=== PATIENT | female | born 1975 | race American Indian/Alaskan Native ===

== ENCOUNTER 2017-02-01 12:07 | Outpatient (CLI) | payer OTHER ==
--- NOTE | 2017-02-01 15:08 | Mammography Report ---
BILATERAL DIGITAL DIAGNOSTIC MAMMOGRAM with CAD: 02/01/17 12:07:00 CLINICAL: Bilateral breast pain and a right lump. Status post bilateral reduction mammoplasty. COMPARISON:None available. However, she stated that she had had previous mammogram at [facility]. FINDINGS: The breasts are almost entirely fatty.No mass or architectural distortion. Bilateral scar with probably benign calcifications. A group of calcifications is associated with scar in the upper outer quadrant of each breast and a few probably benign calcifications are identified near the palpable marker at 7 o'clock near nipple in the right breast. Mostly fat underlies the marker. IMPRESSION: A right palpable lump with negative mammographic findings. Recommend targeted ultrasound of the right breast. We will attempt to obtain a prior mammogram and compare in evaluation of the calcifications. In the event that comparison views are not available, recommend a six-month bilateral mammogram for followup of the calcifications. BI-RADS CATEGORY: 0--Needs Additional Imaging ACR BI-RADS MAMMOGRAPHIC CODES: 0 = Needs additional imaging evaluation; 1 = Negative; 2 = Benign; 3 = Probably benign; 4 = Suspicious; 5 = Malignant; 6 = Known biopsy-proven malignancy COMMENT: 1. Dense breast tissue, i.e., adenosis, fibrocystic changes, etc., may obscure an underlying neoplasm. 2. Approximately 10% of cancers are not detected with mammography. 3. A negative mammography report should not delay biopsy if a clinically suspicious mass is present. COMMENT: Patient follow-up letters are generated by our [employer] application.
== END 2017-02-01 12:08 | disposition home or self-care (01) ==
LOC: SPVWC 12:07
PROVIDERS: ATTEND Surgery
DX: N64.4 Mastodynia (principal); N63.10 Unspecified lump in the right breast, unspecified quadrant; R92.1 Mammographic calcification found on diagnostic imaging of breast; E78.00 Pure hypercholesterolemia, unspecified; F32.9 Major depressive disorder, single episode, unspecified; F41.9 Anxiety disorder, unspecified; D64.9 Anemia, unspecified; Z98.890 Other specified postprocedural states
CPT/HCPCS: 77066; G0204

== ENCOUNTER 2017-03-23 15:21 | Outpatient (CLI) | payer OTHER | END 2017-03-23 15:22 | disposition home or self-care (01) | LOC: LABHHL 15:21 | PROVIDERS: ATTEND Specialist | DX: N64.1 Fat necrosis of breast (principal) | CPT/HCPCS: 88305 ==

== ENCOUNTER 2017-05-10 19:21 | Emergency (ER) | payer MEDICAID ==
[2017-05-10 20:01] VITALS: BP 120/68
[2017-05-10] MEDS ORDERED: TORADOL IM ONE (20:57)
--- NOTE | 2017-05-10 21:02 | Emergency Department Report ---
HPI - General Chief Complaint: Extremity Injury, Lower Time Seen by Provider: 05/10/17 20:53 - HPI HPI: Patient is a 41-year-old female with no prior medical history who presents to ED complaining of left foot pain 1 day. Patient states she was at work earlier today when she twisted her left foot why she was coming down a step. Patient states she did not fall but barely lost her footing. She denies loss of consciousness, any bleeding laceration to the foot. Patient states pain got worse and as the day progresses. So she wanted to have it examined. She denies any loss of sensation or deformities to the foot ED Past Medical Hx - Past Medical History Hx Psychiatric Treatment: Yes (depression/anger) Hx Asthma: No Hx COPD: No Hx HIV: No Additional medical history: bipolar. anxiety - Surgical History Hx Breast Surgery: Yes (REDUCTION) Additional Surgical History: tubal ligation/c section x2 - Social History Smoking Status: Light Tobacco Smoker - Medications Home Medications: Home Medications Medication Instructions Recorded Confirmed Last Taken Type Cyclobenzaprine [Flexeril] 10 mg PO QHS PRN #24 tablet 05/10/17 Unknown Rx Naproxen [Naprosyn] 500 mg PO BID #30 tablet 05/10/17 Unknown Rx ED Review of Systems ROS: Stated complaint: LT ANKLE PAIN Other details as noted in HPI Constitutional: denies: chills, fever Eyes: denies: eye pain, eye discharge, vision change ENT: denies: ear pain, throat pain Respiratory: denies: cough, shortness of breath, wheezing Cardiovascular: denies: chest pain, palpitations Endocrine: no symptoms reported Gastrointestinal: denies: abdominal pain, nausea, diarrhea Genitourinary: denies: urgency, dysuria, discharge Musculoskeletal: denies: back pain, joint swelling, arthralgia Skin: denies: rash, lesions Neurological: denies: headache, weakness, paresthesias Psychiatric: denies: anxiety, depression Hematological/Lymphatic: denies: easy bleeding, easy bruising Physical Exam - Physical Exam Vital Signs: Vital Signs 05/10/17 19:59 Temperature 99.1 F Pulse Rate 80 Respiratory 18 Rate Blood Pressure 120/68 O2 Sat by Pulse 97 Oximetry Physical Exam: GENERAL: Alert and oriented x3, no apparent distress, Normal Gait, atraumatic. HEAD: Head is normocephalic and a-traumatic. NECK: Supple. Non edematous, No carotid bruits. No lymphadenopathy or thyromegaly. No C-spine tenderness LUNGS: Symetrical with respiration, No wheezing, no rales or crackles, CTAB. HEART: S1, S2 present, regular rate and rhythm without murmur, no rubs, no gallops. Non tender to palpation EXTREMITIES/MUSCULOSKELETAL: Left ankle and foot shows no cyanosis, no clubbing , no rash, lesions or edema. Full ROM bilaterally. UE/LE Pulses 2+ bilaterally. LE and UE 5+ strength bilaterally, patient able to flex and extend foot with no problems. Mild tenderness to palpation of the anterior aspect of the foot, warm to touch no deformity seen. Patient able to apply pressure without difficulty. NEUROLOGIC: The patient is cooperative with no focal neurologic deficits. Normal speech. Normal sensation in bilateral upper and lower extremities, No loss of sensation, SKIN: Warm and dry, No lesions, No ulceration or induration present. ED Course Vital Signs 05/10/17 19:59 Temperature 99.1 F Pulse Rate 80 Respiratory 18 Rate Blood Pressure 120/68 O2 Sat by Pulse 97 Oximetry ED Medical Decision Making - Radiology Data Radiology results: report reviewed, image reviewed FINAL REPORT PROCEDURE: XR FOOT 3+V LT TECHNIQUE: LEFT foot radiographs, AP, lateral, and oblique views. CPT 72760 HISTORY: LEFT foot pain COMPARISON: No prior studies are available for comparison. FINDINGS: Fracture (s) and/or Dislocation(s): None . Alignment: Normal . Joint space(s): Normal . Soft tissues: Normal . Bone mineralization: Normal . Foreign bodies: None . Calcaneal spurring: None . IMPRESSION: Normal Examination . Transcribed By: [facility] [place]ictated By: TARSHA LUKE Electronically Authenticated By: TARSHA LUKE Signed Date/Time: 05/10/17 3837 - Medical Decision Making 37-year-old female presents to ED with left foot strain ED course: Patient received Toradol in ED. Foot x-rays obtained. Shows no acute fractures. See reporte above Vital signs are normal patient is in no acute distress Discussed with patient follow-up with primary care physician. Discussed the patient and take medications as prescribed. Patient has no neurological deficit. Patient is alert and oriented 3 and understands all instructions given. Discussed drowsiness effect of Flexeril makes her drowsy and not to operate machinery while taking flexeril Critical care attestation.: If time is entered above; I have spent that time in minutes in the direct care of this critically ill patient, excluding procedure time. ED Disposition Clinical Impression: Strain of foot, left Qualifiers: Encounter type: initial encounter Qualified Code(s): S96.912A - Strain of unspecified muscle and tendon at ankle and foot level, left foot, initial encounter Disposition: TO HOME OR SELFCARE Is pt being admited?: No Does the pt Need Aspirin: No Condition: Stable Instructions: Foot Sprain (ED), Arthralgia (ED), Ankle Exercises (GEN), RICE Therapy (ED) Additional Instructions: Make sure to follow up with the primary care physician as discussed. Take all your medications as you've been prescribed. If you have any worsening symptoms or develop new symptoms please return to ED immediately. Prescriptions: Cyclobenzaprine [Flexeril] 10 mg PO QHS PRN #24 tablet PRN Reason: Muscle Spasm Naproxen [Naprosyn] 500 mg PO BID #30 tablet Referrals: ELLY SURESH MD [Primary Care Provider] - 3-5 Days [facility] [Outside] - 3-5 Days [facility] [Outside] - 3-5 Days [facility] [Outside] - 3-5 Days Forms: Work/School Release Form(ED) Time of Disposition: 21:07
--- NOTE | 2017-05-10 22:14 | XRay Report ---
FINAL REPORT PROCEDURE: XR FOOT 3+V LT TECHNIQUE: LEFT foot radiographs, AP, lateral, and oblique views. CPT 93080 HISTORY: LEFT foot pain COMPARISON: No prior studies are available for comparison. FINDINGS: Fracture (s) and/or Dislocation(s): None . Alignment: Normal . Joint space(s): Normal . Soft tissues: Normal . Bone mineralization: Normal . Foreign bodies: None . Calcaneal spurring: None . IMPRESSION: Normal Examination .
== END 2017-05-10 22:27 | disposition home or self-care (01) ==
LOC: ED 19:21
DX: S96.912A Strain of unspecified muscle and tendon at ankle and foot level, left foot, initial encounter (principal); F31.9 Bipolar disorder, unspecified; F41.9 Anxiety disorder, unspecified; F17.200 Nicotine dependence, unspecified, uncomplicated; Z98.51 Tubal ligation status; Z88.8 Allergy status to other drugs, medicaments and biological substances; X50.1XXA Overexertion from prolonged static or awkward postures, initial encounter; Y93.01 Activity, walking, marching and hiking; Y99.0 Civilian activity done for income or pay; Y92.69 Other specified industrial and construction area as the place of occurrence of the external cause
CPT/HCPCS: 73630; 96372; 99283; J1885

== ENCOUNTER 2017-10-31 08:08 | Emergency (ER) | payer MEDICAID ==
[2017-10-31 08:55] VITALS: BP 131/73
[2017-10-31] MEDS ORDERED: FUL-GLO OP ONE (11:10)
[2017-10-31] MEDS ORDERED: FIORICET PO ONE (11:10)
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
== END 2017-10-31 11:50 | disposition home or self-care (01) ==
LOC: ED 08:08
DX: H20.9 Unspecified iridocyclitis (principal); S05.02XA Injury of conjunctiva and corneal abrasion without foreign body, left eye, initial encounter; S05.01XA Injury of conjunctiva and corneal abrasion without foreign body, right eye, initial encounter; Z88.8 Allergy status to other drugs, medicaments and biological substances; Y09 Assault by unspecified means; Y93.89 Activity, other specified; Y92.89 Other specified places as the place of occurrence of the external cause; Y99.8 Other external cause status
CPT/HCPCS: 99283

== ENCOUNTER 2018-06-20 09:58 | Emergency (ER) | payer OTHER ==
[2018-06-20 10:13] VITALS: BP 126/85
[2018-06-20] MEDS ORDERED: TORADOL IM ONE (12:33)
--- NOTE | 2018-06-20 13:09 | Emergency Department Report ---
ED Back Pain/Injury HPI - General Chief Complaint: Back Pain/Injury Stated Complaint: BACK/CHEST/FEET PAIN Time Seen by Provider: 06/20/18 12:28 Source: patient Limitations: No Limitations - History of Present Illness Initial Comments: Patient is a 42-year-old female who is presenting with generalized back pain. Patient states for the last 2 days she's had pain in the lower back as well as the left mid back. Patient states she has a history of chronic pain but the pain is worse over the last 2 days. Patient denies any bowel or bladder dysfunction dysuria or abdominal pain. Patient denies any direct trauma to the back or falls. - Related Data Previous Rx's Medication Instructions Recorded Last Taken Type Cyclobenzaprine [Flexeril] 10 mg PO QHS PRN #24 tablet 05/10/17 Unknown Rx Naproxen [Naprosyn] 500 mg PO BID #30 tablet 05/10/17 Unknown Rx Acetaminophen/Codeine [Tylenol 1 tab PO Q6H PRN #20 tab 10/31/17 Unknown Rx /Codeine # 3 tab] Erythromycin [Erythromycin Ophth 10 applic OP QID #1 tube 10/31/17 Unknown Rx Oint] Prednisolone Acetate/Pf 5 ml OP TID #1 drops.susp 10/31/17 Unknown Rx [Prednisolone Acet 1% Eye Drop] Ciprofloxacin HCl [Ciprofloxacin 100 mg PO BID #14 tablet 12/12/17 Unknown Rx TAB] HYDROcodone/APAP 5-325 [[place] 1 - 2 each PO Q6HR PRN #14 tablet 12/12/17 Unknown Rx 5/325] Promethazine [Phenergan TAB] 25 mg PO Q6HR PRN #20 tab 12/12/17 Unknown Rx Promethazine [Phenergan] 25 mg MO Q6HR PRN #5 supp.rect 12/12/17 Unknown Rx Ibuprofen [Ibu] 800 mg PO Q8H PRN #20 tablet 06/20/18 Unknown Rx methOCARBAMOL [Robaxin TAB] 500 mg PO Q6H PRN #14 tablet 06/20/18 Unknown Rx traMADol [Ultram] 50 mg PO Q6HR PRN #12 tablet 06/20/18 Unknown Rx Allergies Allergy/AdvReac Type Severity Reaction Status Date / Time bismuth subsalicylate Allergy Angioedema Verified 06/20/18 09:59 [From Pepto-Bismol] risperidone [From Risperdal] Allergy Swelling Verified 06/20/18 09:59 ED Review of Systems ROS: Stated complaint: BACK/CHEST/FEET PAIN Other details as noted in HPI Comment: All other systems reviewed and negative ED Past Medical Hx - Past Medical History bipolar. anxiety Family history: no significant family history ED Back Pain Physical Exam - Exam General: Vital signs noted. No distress. Alert and acting appropriately. Back/Abdomen: Yes Perithoracic Tenderness, Yes Perilumbar Tenderness, No Abdominal Tenderness, No Sacroiliac Tenderness, No Flank Tenderness, No Straight Leg Raise Pain Neuro: Yes Normal Sensation, Yes Normal DTR's, Yes Normal Gait, No Motor Weakness ED Course Vital Signs 06/20/18 10:09 Temperature 97.7 F Pulse Rate 76 Respiratory 18 Rate Blood Pressure 126/85 [Right] O2 Sat by Pulse 100 Oximetry ED Medical Decision Making - Medical Decision Making She does not meet criteria for x-ray at this time. Patient referred to orthopedics for MRI. Patient given medicines medical relief and patient will be discharged home. Critical care attestation.: If time is entered above; I have spent that time in minutes in the direct care of this critically ill patient, excluding procedure time. ED Disposition Clinical Impression: Acute exacerbation of chronic low back pain Disposition: DC-01 TO HOME OR SELFCARE Is pt being admited?: No Does the pt Need Aspirin: No Condition: Stable Instructions: Back Pain (ED) Referrals: KEMAR PEDRO MD [Staff Physician] - 3-5 Days Time of Disposition: 13:10
== END 2018-06-20 13:30 | disposition home or self-care (01) ==
LOC: ED 09:58
DX: M54.5 Low back pain (principal); G43.909 Migraine, unspecified, not intractable, without status migrainosus
CPT/HCPCS: 96372; 99282; J1885

== ENCOUNTER → 2018-07-12 | Outpatient (CLI) | payer OTHER | END | disposition home or self-care (01) | LOC: SLR 11:00 | PROVIDERS: ATTEND Otolaryngology | DX: G47.33 Obstructive sleep apnea (adult) (pediatric) (principal); R40.0 Somnolence; R06.83 Snoring | CPT/HCPCS: 95810 ==

== ENCOUNTER 2018-07-19 11:00 | Outpatient (CLI) | payer OTHER | END 2018-07-19 11:01 | disposition home or self-care (01) | LOC: SLR 11:00 | PROVIDERS: ATTEND Otolaryngology | DX: G47.33 Obstructive sleep apnea (adult) (pediatric) (principal); R40.0 Somnolence; R06.83 Snoring; E66.9 Obesity, unspecified | CPT/HCPCS: 95811 ==

== ENCOUNTER 2018-07-31 10:22 | Outpatient (CLI) | payer OTHER ==
--- NOTE | 2018-07-31 11:46 | XRay Report ---
AP AND LATERAL CERVICAL SPINE: History: Neck pain. The vertebral bodies are well mineralized and normal in alignment and vertebral height with well preserved interspace distances. The visualized portions of the posterior elements are normal. IMPRESSION: Normal study.
--- NOTE | 2018-07-31 11:46 | XRay Report ---
THORACIC SPINE, 2 VIEWS: HISTORY: back pain. Normal bone mineralization. No evidence for compression deformity, malalignment, or bone lesion. The posterior ribs are intact. The paraspinal soft tissues are within normal limits. IMPRESSION: Thoracic spine within normal limits.
--- NOTE | 2018-07-31 11:47 | XRay Report ---
LUMBOSACRAL SPINE, 3 VIEWS: History: Back pain Findings: The vertebral bodies, disk spaces and posterior elements are intact. No compression deformity or malalignment. The SI joints are symmetric and unremarkable. Mild facet arthropathy is identified at L4-5 and L5-S1. Impression: Mild facet arthropathy in the lower lumbar spine. Otherwise, unremarkable lumbar spine films.
== END 2018-07-31 10:23 | disposition home or self-care (01) ==
LOC: XRAY 10:22
PROVIDERS: ATTEND Internal Medicine
DX: Z02.71 Encounter for disability determination (principal); M46.87 Other specified inflammatory spondylopathies, lumbosacral region; M54.2 Cervicalgia; M54.6 Pain in thoracic spine
CPT/HCPCS: 72040; 72070; 72100

== ENCOUNTER 2018-10-26 10:05 | Emergency (ER) | payer OTHER ==
[2018-10-26] MEDS ORDERED: TORADOL IM ONE (11:30)
--- NOTE | 2018-10-26 12:17 | Emergency Department Report ---
ED Lower Extremity HPI - General Chief Complaint: Extremity Injury, Lower Stated Complaint: INJURED KNEE Time Seen by Provider: 10/26/18 11:15 Source: patient Mode of arrival: Ambulatory Limitations: No Limitations - History of Present Illness Initial Comments: 43-year-old female presents to the hospital complaining of right knee pain 3 days. Patient slipped in the grass hyperextend her knee when she fell. Pain has worsened instead of improving. Pain is at the anterior knee at the patella tendon as well as the posterior knee/popliteal space. Mild swelling. No erythema. Patient able to bear weight although painful. - Related Data Previous Rx's Medication Instructions Recorded Last Taken Type Cyclobenzaprine [Flexeril] 10 mg PO QHS PRN #24 tablet 05/10/17 Unknown Rx Naproxen [Naprosyn] 500 mg PO BID #30 tablet 05/10/17 Unknown Rx Acetaminophen/Codeine [Tylenol 1 tab PO Q6H PRN #20 tab 10/31/17 Unknown Rx /Codeine # 3 tab] Erythromycin [Erythromycin Ophth 10 applic OP QID #1 tube 10/31/17 Unknown Rx Oint] Prednisolone Acetate/Pf 5 ml OP TID #1 drops.susp 10/31/17 Unknown Rx [Prednisolone Acet 1% Eye Drop] Ciprofloxacin HCl [Ciprofloxacin 100 mg PO BID #14 tablet 12/12/17 Unknown Rx TAB] HYDROcodone/APAP 5-325 [[place] 1 - 2 each PO Q6HR PRN #14 tablet 12/12/17 Unknown Rx 5/325] Promethazine [Phenergan TAB] 25 mg PO Q6HR PRN #20 tab 12/12/17 Unknown Rx Promethazine [Phenergan] 25 mg [place] Q6HR PRN #5 supp.rect 12/12/17 Unknown Rx Ibuprofen [Ibu] 800 mg PO Q8H PRN #20 tablet 06/20/18 Unknown Rx methOCARBAMOL [Robaxin TAB] 500 mg PO Q6H PRN #14 tablet 06/20/18 Unknown Rx traMADol [Ultram] 50 mg PO Q6HR PRN #12 tablet 06/20/18 Unknown Rx Ibuprofen [Motrin] 800 mg PO Q8HR PRN #30 tablet 10/26/18 Unknown Rx traMADol [Ultram 50 MG tab] 50 mg PO Q4HR PRN #14 tablet 09/12/19 Unknown Rx Allergies Allergy/AdvReac Type Severity Reaction Status Date / Time bismuth subsalicylate Allergy Angioedema Verified 06/20/18 09:59 [From Pepto-Bismol] risperidone [From Risperdal] Allergy Swelling Verified 06/20/18 09:59 ED Review of Systems ROS: Stated complaint: INJURED KNEE Other details as noted in HPI Comment: All other systems reviewed and negative ED Past Medical Hx - Past Medical History Hx Hypertension: Yes Hx Diabetes: Yes Hx Psychiatric Treatment: Yes (depression/anger) Hx Asthma: No Hx COPD: No Hx HIV: No Additional medical history: bipolar. anxiety - Surgical History Hx Breast Surgery: Yes (REDUCTION) Additional Surgical History: tubal ligation/c section x2 - Social History Smoking Status: Never Smoker Substance Use Type: Alcohol - Medications Home Medications: Home Medications Medication Instructions Recorded Confirmed Last Taken Type Cyclobenzaprine [Flexeril] 10 mg PO QHS PRN #24 tablet 05/10/17 Unknown Rx Naproxen [Naprosyn] 500 mg PO BID #30 tablet 05/10/17 Unknown Rx Acetaminophen/Codeine [Tylenol 1 tab PO Q6H PRN #20 tab 10/31/17 Unknown Rx /Codeine # 3 tab] Erythromycin [Erythromycin Ophth 10 applic OP QID #1 tube 10/31/17 Unknown Rx Oint] Prednisolone Acetate/Pf 5 ml OP TID #1 drops.susp 10/31/17 Unknown Rx [Prednisolone Acet 1% Eye Drop] Ciprofloxacin HCl [Ciprofloxacin 100 mg PO BID #14 tablet 12/12/17 Unknown Rx TAB] HYDROcodone/APAP 5-325 [[place] 1 - 2 each PO Q6HR PRN #14 tablet 12/12/17 Unknown Rx 5/325] Promethazine [Phenergan TAB] 25 mg PO Q6HR PRN #20 tab 12/12/17 Unknown Rx Promethazine [Phenergan] 25 mg [place] Q6HR PRN #5 supp.rect 12/12/17 Unknown Rx Ibuprofen [Ibu] 800 mg PO Q8H PRN #20 tablet 06/20/18 Unknown Rx methOCARBAMOL [Robaxin TAB] 500 mg PO Q6H PRN #14 tablet 06/20/18 Unknown Rx traMADol [Ultram] 50 mg PO Q6HR PRN #12 tablet 06/20/18 Unknown Rx Ibuprofen [Motrin] 800 mg PO Q8HR PRN #30 tablet 10/26/18 Unknown Rx traMADol [Ultram 50 MG tab] 50 mg PO Q4HR PRN #14 tablet 10/26/18 Unknown Rx ED Physical Exam - General Limitations: No Limitations - Other Other exam information: Gen.: No acute distress Head: Atraumatic Eyes: Normal appearance EENT: Moist mucous membranes Neck: Normal appearance, no posterior midline tenderness, no meningismus Chest: Clear to auscultation bilaterally Cardiovascular: Regular rate and rhythm Abdomen: Normal appearance, soft, nontender, no rebound or guarding, normal bowel sounds Back: Normal appearance, nontender Extremity: Full range of motion, mild anterior knee swelling. Mild patellar tenderness and patella tendon. No joint instability with valgus or varus stress. Pain with movement and weightbearing. Neuro: Alert, clear speech, no focal motor or sensory deficit Psychiatric: Appropriate Skin: No rash ED Course Vital Signs 10/26/18 10:32 Temperature 98.2 F Pulse Rate 69 Respiratory 18 Rate Blood Pressure 132/81 O2 Sat by Pulse 100 Oximetry ED Lower Extremity MDM - Radiology Data Radiology results: report reviewed Right knee, 3 views INDICATION: r knee pain after hyperextension. COMPARISON: None. IMPRESSION: No acute osseous or soft tissue abnormality. No significant DJD. Focal chronic calcifications overlie the proximal MCL suggesting chronic injury. - Medical Decision Making no fxt xray reviewed lloyd wrap for support ortho f/u - Differential Diagnosis fracture, contusion, sprain Critical Care Time: No Critical care attestation.: If time is entered above; I have spent that time in minutes in the direct care of this critically ill patient, excluding procedure time. ED Disposition Clinical Impression: Right knee sprain Disposition: DC-01 TO HOME OR SELFCARE Is pt being admited?: No Does the pt Need Aspirin: No Condition: Stable Instructions: Knee Sprain (ED) Additional Instructions: Take the medication as prescribed. Follow-up with your doctor or with the doctor/clinic provided. Return if symptoms worsen as indicated by your discharge instructions. Prescriptions: Ibuprofen [Motrin] 800 mg PO Q8HR PRN #30 tablet PRN Reason: Pain, Moderate (4-6) traMADol [Ultram 50 MG tab] 50 mg PO Q4HR PRN #14 tablet PRN Reason: Pain Referrals: PRIMARY CARE, [Primary Care Provider] - 3-[address] [facility] [Provider Group] - 3-5 Days KEMAR PEDRO MD [Staff Physician] - 3-5 Days (orthopedic ) Time of Disposition: 12:44
--- NOTE | 2018-10-26 12:39 | XRay Report ---
Right knee, 3 views INDICATION: r knee pain after hyperextension. COMPARISON: None. IMPRESSION: No acute osseous or soft tissue abnormality. No significant DJD. Focal chronic calcif ications overlie the proximal MCL suggesting chronic injury. Signer Name: Axel Owusu Jr, MD Signed: 10/26/2018 12:34 PM Workstation Name: [id number]
[2018-10-26 12:53] VITALS: BP 130/78
== END 2018-10-26 12:52 | disposition home or self-care (01) ==
LOC: ED 10:05
DX: S83.91XA Sprain of unspecified site of right knee, initial encounter (principal); W01.0XXA Fall on same level from slipping, tripping and stumbling without subsequent striking against object, initial encounter; Y93.89 Activity, other specified; Y92.89 Other specified places as the place of occurrence of the external cause; Y99.8 Other external cause status
CPT/HCPCS: 73562; 96372; 99283; J1885

== ENCOUNTER 2020-05-21 11:00 | Outpatient (CLI) | payer OTHER | END 2020-05-21 11:01 | disposition home or self-care (01) | LOC: SLR 11:00 | PROVIDERS: ATTEND Otolaryngology | DX: G47.30 Sleep apnea, unspecified (principal) | CPT/HCPCS: 95810 ==

== ENCOUNTER 2020-05-26 11:00 | Outpatient (CLI) | payer OTHER | END 2020-05-26 11:01 | disposition home or self-care (01) | LOC: SLR 11:00 | PROVIDERS: ATTEND Otolaryngology | DX: G47.33 Obstructive sleep apnea (adult) (pediatric) (principal) | CPT/HCPCS: 95811 ==